=== PATIENT | female | born 1940 | race Caucasian/White ===

== ENCOUNTER 2023-06-02 13:09 | Emergency (ER) | payer MEDICARE, OTHER ==
[2023-06-02 13:59] LABS: Hematocrit 20.4 % (34.9-44.5); Hemoglobin 6.3 g/dL (12.0-15.5); Mean Corpuscular HGB CONC 30.9 g/dL (32.0-36.0); Mean Corpuscular Hemoglobin 29.6 pg (27.0-33.0); Mean Corpuscular Volume 95.8 fl (81.6-98.3); RBC Distribution Width 20.5 % (11.5-14.5); Red Blood Cell (RBC) Count 2.13 10x6/uL (3.90-5.03); White Blood Cell (WBC) Count 1.5 10x3/uL (3.5-10.5)
[2023-06-02 14:22] LABS: SARS-CoV-2 NAA Rapid Test Not Detected (NotDetected)
[2023-06-02 14:39] LABS: Anion Gap 13 mmol/L (10-20); BUN (Urea Nitrogen) 22 mg/dL (9.8-20.1); Carbon Dioxide 20 mmol/L (23-31); Chloride 104 mmol/L (98-107); Potassium 3.8 mmol/L (3.5-5.1); Sodium 133 mmol/L (136-145)
[2023-06-02 14:40] LABS: ALT (SGPT) 14 U/L (8-55); AST (SGOT) 30 U/L (5-34); Albumin 3.4 g/dL (3.4-4.8); Alkaline Phosphatase 62 U/L (40-110); Bilirubin, Total 1.3 mg/dL (0.2-1.2); Calc. Creatinine Clearance 0 mL/min (70-130); Calcium 8.6 mg/dL (7.6-10.4); Estimated GFR 63; Globulin 2.4 g/dL (2.4-3.5); Glucose 100 mg/dL (83-110); Protein, Total 5.8 g/dL (5.8-8.1)
[2023-06-02 14:42] LABS: MDiff Complete? YES; Platelet Adequacy Comment Appears Decreased
[2023-06-02 14:43] LABS: Platelet Count 54 10x3/uL (150-450)
[2023-06-02 15:06] LABS: Lymphocytes 44 % (21-51); Monocytes 14 % (0-10); Myelocyte 4 % (0-0); Neutrophil 10 % (42-75); Reactive Lymphocytes 28 % (0-10)
[2023-06-02 15:13] LABS: Reflex for Review?? YES
[2023-06-02 15:14] LABS: Bite Cells SLIGHT = 2-5 cells (100X) (0-1/hpf); Elliptocytes SLIGHT = 2-5 cells (100X) (0-1/hpf); Poikilocytosis MODERATE=16-30 cells (100X) (0-5/hpf)
[2023-06-02 15:15] LABS: Anisocytosis SLIGHT = 6-15 cells (100X) (0-5/hpf)
== END 2023-06-02 23:04 | disposition short-term general hospital (02) ==
LOC: CSHERS 13:09
DX: D64.9 Anemia, unspecified (principal); D61.818 Other pancytopenia; D72.819 Decreased white blood cell count, unspecified; K21.9 Gastro-esophageal reflux disease without esophagitis; I10 Essential (primary) hypertension; E78.5 Hyperlipidemia, unspecified; Z79.899 Other long term (current) drug therapy
CPT/HCPCS: 0240U; 36430; 80053; 85025; 86850; 86900; 86901; 86920; P9016; 36415; 85060; 99285